=== PATIENT | male | born 1995 | race American Indian/Alaskan Native ===

== ENCOUNTER 2017-02-03 21:14 | Emergency (ER) | payer MEDICAID ==
[2017-02-03 21:27] VITALS: BP 120/81
[2017-02-03] MEDS ORDERED: Ibuprofen 600 MG Tab PO ONE (22:17)
[2017-02-03] MEDS ORDERED: Bacitracin Oint 1 GM U/D Packet TOP ONE (22:17)
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
== END 2017-02-03 23:10 | disposition home or self-care (01) ==
LOC: DL.ED 21:14
DX: S40.211A Abrasion of right shoulder, initial encounter (principal); J45.909 Unspecified asthma, uncomplicated; F32.9 Major depressive disorder, single episode, unspecified; V19.9XXA Pedal cyclist (driver) (passenger) injured in unspecified traffic accident, initial encounter
CPT/HCPCS: 73020; 73060; 73090; 99283; A9270

== ENCOUNTER 2017-09-26 22:47 | Emergency (ER) | payer MEDICAID ==
[2017-09-26 22:54] VITALS: BP 116/73
--- NOTE | 2017-09-26 23:37 | EDM.PDOC ---
ED HPI GENERAL MEDICAL PROBLEM - General Chief Complaint: General Stated Complaint: fall [id number] Time Seen by Provider: 09/26/17 23:32 Source of Information: Reports: Patient History Limitations: Reports: No Limitations - History of Present Illness INITIAL COMMENTS - FREE TEXT/NARRATIVE: slipped on ice and fell landing onto right posterior shoulder and also hit his head without LOC/V then today been having stiffness pain right shoulder and right neck area. Right Neck Pain Score (Numeric/FACES): 6 - Related Data Allergies Allergy/AdvReac Type Severity Reaction Status Date / Time No Known Allergies Allergy Verified 02/03/17 21:30 Home Meds: Home Meds Albuterol [Proventil HFA] 2 puff INH Q4H PRN 04/06/16 [History] guanFACINE HCl [Guanfacine HCl ER] 3 mg PO BEDTIME 04/06/16 [History] Past Medical History Respiratory History: Reports: Asthma Musculoskeletal History: Reports: Back Pain, Chronic, Other (See Below) Other Musculoskeletal History: scolosis Psychiatric History: Reports: Depression, Emotional Problems Social & Family History - Family History Family Medical History: Noncontributory HEENT: Reports: Hearing Impairment Other HEENT Family History: mother - Tobacco Use Smoking Status *Q: Current Every Day Smoker Years of Tobacco use: 1 Packs/Tins Daily: 2 Second Hand Smoke Exposure: No - Caffeine Use Caffeine Use: Reports: Soda - Alcohol Use Date of Last Drink: 09/26/17 - Recreational Drug Use Recreational Drug Use: Yes Recreational Drug Type: Reports: Marijuana/Hashish Recreational Drug Use Frequency: Binges ED ROS GENERAL - Review of Systems Review Of Systems: ROS reveals no pertinent complaints other than HPI. ED EXAM, GENERAL - Physical Exam Exam: See Below Exam Limited By: No Limitations General Appearance: Alert, WD/WN, Mild Distress, Other (discomfort) Eye Exam: Bilateral Eye: PERRL (pupils ER @ 4mm) Ears: Normal External Exam, Normal Canal, Hearing Grossly Normal, Normal TMs Throat/Mouth: Normal Voice, No Airway Compromise Head: Atraumatic, Other (no O/B) Neck: Normal Inspection, Supple, Full Range of Motion, Other (c/o right side feels stiff) Respiratory/Chest: No Respiratory Distress Cardiovascular: Regular Rate, Rhythm GI/Abdominal: Soft, Non-Tender Extremities: Other (rigth trapez & scap tender on R/P, NV wnl) Neurological: Alert, Oriented, Normal Cognition, Normal Gait, No Motor/Sensory Deficits Psychiatric: Flat Affect Skin Exam: Warm, Dry, Normal Color Lymphatic: No Adenopathy Course - Vital Signs Last Recorded V/S: Last Vital Signs Temp 37.0 C 09/26/17 22:53 Pulse 89 09/26/17 22:53 Resp 16 09/26/17 22:53 BP 116/73 09/26/17 22:53 Pulse Ox 95 09/26/17 22:53 - Orders/Labs/Meds Orders: Active Orders 24 hr Category Date Time Status Cyclobenzaprine [Flexeril] Med 09/27/17 00:26 Once 10 mg PO ONETIME ONE - Re-Assessments/Exams Free Text/Narrative Re-Assessment/Exam: 09/27/17 00:27 results discussed with pt. Departure - Departure Time of Disposition: 00:27 Disposition: Home, Self-Care 01 Condition: Good Clinical Impression: Cervical muscle strain Qualifiers: Encounter type: initial encounter Qualified Code(s): S16.1XXA - Strain of muscle, fascia and tendon at neck level, initial encounter Right shoulder strain Qualifiers: Encounter type: initial encounter Qualified Code(s): S46.911A - Strain of unspecified muscle, fascia and tendon at shoulder and upper arm level, right arm , initial encounter - Discharge Information Instructions: Muscle Strain Forms: ED Department Discharge Additional Instructions: 1) try heat pad to sore areas 2) recheck as needed rx given; flexeril 10mg bid prn x 12 - My Orders Last 24 Hours: My Active Orders 09/27/17 00:26 Cyclobenzaprine [Flexeril] 10 mg PO ONETIME ONE - Assessment/Plan Last 24 Hours: My Active Orders 09/27/17 00:26 Cyclobenzaprine [Flexeril] 10 mg PO ONETIME ONE
[2017-09-27] MEDS ORDERED: Cyclobenzaprine 10 MG Tab PO ONE (00:26)
== END 2017-09-27 00:37 | disposition home or self-care (01) ==
LOC: DL.ED 22:47
DX: S46.911A Strain of unspecified muscle, fascia and tendon at shoulder and upper arm level, right arm, initial encounter (principal); S16.1XXA Strain of muscle, fascia and tendon at neck level, initial encounter; F17.210 Nicotine dependence, cigarettes, uncomplicated; F32.9 Major depressive disorder, single episode, unspecified; J45.909 Unspecified asthma, uncomplicated; W00.0XXA Fall on same level due to ice and snow, initial encounter
CPT/HCPCS: 72040; 73010; 99283; A9270

== ENCOUNTER 2017-11-21 21:01 | Emergency (ER) | payer MEDICAID ==
[2017-11-21 21:13] VITALS: BP 136/88
--- NOTE | 2017-11-21 21:35 | EDM.PDOC ---
ED HPI GENERAL MEDICAL PROBLEM - General Chief Complaint: Back Pain or Injury Stated Complaint: SEVERE BACK PAINS [id number] Time Seen by Provider: 11/21/17 21:27 Source of Information: Reports: Patient History Limitations: Reports: No Limitations - History of Present Illness INITIAL COMMENTS - FREE TEXT/NARRATIVE: fell few days ago but still hurts. gives h/o scoliosis. denies pain radiation down legs & arms. back Pain Score (Numeric/FACES): 10 - Related Data Allergies Allergy/AdvReac Type Severity Reaction Status Date / Time No Known Allergies Allergy Verified 11/21/17 21:14 Home Meds: Home Meds . [No Known Home Meds] 11/21/17 [History] Past Medical History - Past Health History Medical/Surgical History: Denies Medical/Surgical History Respiratory History: Reports: Asthma Musculoskeletal History: Reports: Back Pain, Chronic, Other (See Below) Other Musculoskeletal History: scolosis Psychiatric History: Reports: Depression, Emotional Problems Endocrine/Metabolic History: Reports: None Social & Family History - Family History Family Medical History: Noncontributory HEENT: Reports: Hearing Impairment Other HEENT Family History: mother - Tobacco Use Smoking Status *Q: Current Every Day Smoker Years of Tobacco use: 2 Packs/Tins Daily: 0.5 Second Hand Smoke Exposure: No - Caffeine Use Caffeine Use: Reports: Coffee - Alcohol Use Days Per Week of Alcohol Use: 1 Number of Drinks Per Day: 2 Total Drinks Per Week: 2 - Recreational Drug Use Recreational Drug Use: Yes Recreational Drug Type: Reports: Marijuana/Hashish Recreational Drug Use Frequency: Daily ED ROS GENERAL - Review of Systems Review Of Systems: ROS reveals no pertinent complaints other than HPI. ED EXAM, UPPER BACK/NECK PAIN - Physical Exam Exam: See Below Exam Limited By: No Limitations General Appearance: Alert, WD/WN, No Apparent Distress, Other (minimal discomfort) Ears Exam: Hearing Grossly Normal Throat/Mouth Exam: Normal Voice, No Airway Compromise Head Exam: Atraumatic Neck Exam: Non-Tender, Full Range of Motion Nexus Criteria: No: Posterior, Midline Cervical Tenderness, Evidence of Intoxication, Altered Level of Consciousness, Focal Neurological Deficit, Painful Distraction Injuries Cardiovascular/Respiratory: Regular Rate, Rhythm, No Respiratory Distress GI/Abdominal: Soft, Non-Tender Back Exam: Paraspinal Tenderness, Other (A0-2-1-8-9-10-TL with scoliotic curve, without radiculitis.) Neurologic: No Motor/Sensory Deficits, Alert, Normal Mood/Affect, Oriented x 3 Psychiatric: Normal Affect, Normal Mood Skin Exam: Normal Color, Warm/Dry Lymphatic: No Adenopathy Course - Vital Signs Last Recorded V/S: Last Vital Signs Temp 36.4 C 11/21/17 21:12 Pulse 108 H 11/21/17 21:12 Resp 16 11/21/17 21:12 BP 136/88 11/21/17 21:12 Pulse Ox 96 11/21/17 21:12 - Orders/Labs/Meds Meds: Medications Discontinued Medications Generic Name Dose Route Start Last Admin Trade Name Freq PRN Reason Stop Dose Admin Cyclobenzaprine HCl 10 mg 11/21/17 21:48 11/21/17 21:52 Flexeril PO 11/21/17 21:49 10 mg ONETIME ONE Administration Ibuprofen 600 mg 11/21/17 21:37 11/21/17 21:43 Motrin PO 11/21/17 21:38 600 mg ONETIME ONE Administration - Re-Assessments/Exams Free Text/Narrative Re-Assessment/Exam: 11/21/17 22:41 results discussed with pt. Departure - Departure Time of Disposition: 22:41 Disposition: Home, Self-Care 01 Condition: Good Clinical Impression: Back pain Qualifiers: Back pain location: thoracic back pain Chronicity: acute Back pain laterality: bilateral Qualified Code(s): M54.6 - Pain in thoracic spine Scoliosis deformity of spine Qualifiers: Scoliosis type: unspecified scoliosis Spinal region: thoracic Qualified Code(s) : M41.9 - Scoliosis, unspecified - Discharge Information Instructions: Back Pain, Adult, [id number] Forms: ED Department Discharge Additional Instructions: 1) rest and avoid bending lifting straining 2) try ice or heat to sore areas 3) see family doctor Thursday
[2017-11-21] MEDS ORDERED: Ibuprofen 600 MG Tab PO ONE (21:37)
[2017-11-21] MEDS ORDERED: Cyclobenzaprine 10 MG Tab PO ONE (21:48)
== END 2017-11-21 22:46 | disposition home or self-care (01) ==
LOC: DL.ED 21:01
DX: M41.9 Scoliosis, unspecified (principal); M54.6 Pain in thoracic spine; F17.210 Nicotine dependence, cigarettes, uncomplicated
CPT/HCPCS: 72070; 99283; A9270

== ENCOUNTER 2018-10-23 18:39 | Emergency (ER) | payer OTHER, MEDICAID ==
[2018-10-23] MEDS ORDERED: Iopamidol 612 MG/ML 100 ML Bottle IVPUSH ONE (18:51)
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
[2018-10-23 19:09] LABS: ANION GAP 13.5; CHLORIDE,CL 102 mmol/L (101-111); SODIUM,NA 135 mmol/L (135-145)
[2018-10-23] MEDS ORDERED: Ketorolac 30 MG/ML SDV IVPUSH ONE (19:39)
== END 2018-10-23 20:08 | disposition home or self-care (01) ==
LOC: DL.ED 18:39
DX: S16.1XXA Strain of muscle, fascia and tendon at neck level, initial encounter (principal); S39.012A Strain of muscle, fascia and tendon of lower back, initial encounter; V87.7XXA Person injured in collision between other specified motor vehicles (traffic), initial encounter
CPT/HCPCS: 36415; 70450; 71260; 72125; 74177; 80053; 80305; 81001; 85025; 96374; 99285; G0480; J1885; Q9967

== ENCOUNTER 2021-03-06 11:50 | Emergency (ER) | payer MEDICAID ==
[2021-03-06 12:18] VITALS: BP 122/73; PULSE 62
[2021-03-06] MEDS ORDERED: Ondansetron 4 MG Tab.DIS PO ONE (12:47)
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
== END 2021-03-06 13:49 | disposition home or self-care (01) ==
LOC: DL.ED 11:50
DX: K52.9 Noninfective gastroenteritis and colitis, unspecified (principal); Z72.0 Tobacco use
CPT/HCPCS: 99283; A9270-GY

== ENCOUNTER 2021-05-14 16:36 | Emergency (ER) | payer MEDICAID ==
[2021-05-14] MEDS ORDERED: Ondansetron 4 MG Tab.DIS PO ONE (16:37)
[2021-05-14 17:07] VITALS: BP 133/73; PULSE 94
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
[2021-05-14] MEDS ORDERED: Ondansetron 4 MG Tab.DIS ONE (18:41)
== END 2021-05-14 18:51 | disposition home or self-care (01) ==
LOC: DL.ED 16:36
DX: U07.1 COVID-19 (principal); J45.909 Unspecified asthma, uncomplicated; Z72.0 Tobacco use; Z79.899 Other long term (current) drug therapy
CPT/HCPCS: 87081; 87430; 87635; 87804; 99283; A9270; U0002